=== PATIENT | male | born 1975 | race African-American/Black ===

== ENCOUNTER 2023-02-11 14:39 | Outpatient (CLI) | payer BC | END 2023-02-11 14:40 | disposition home or self-care (01) | LOC: SCSRAD 14:39 | PROVIDERS: ATTEND Nurse Practitioner Family | DX: S13.4XXA Sprain of ligaments of cervical spine, initial encounter (principal); M47.812 Spondylosis without myelopathy or radiculopathy, cervical region; M46.02 Spinal enthesopathy, cervical region; M50.31 Other cervical disc degeneration, high cervical region; M50.321 Other cervical disc degeneration at C4-C5 level; M50.322 Other cervical disc degeneration at C5-C6 level | CPT/HCPCS: 72040 ==